=== PATIENT | male | born 1975 | race Caucasian/White ===

== ENCOUNTER 2022-10-31 20:53 | Emergency (ER) | payer OTHER ==
[~2022-10-31] VITALS: Ht 177.8 cm; Wt 140.9 kg
[2022-10-31 21:39] LABS: Basophils # (auto) 0 10 ^3/uL (0-0.2); Basophils % (auto) 0.2 % (0.0-2.0); Eosinophils # (auto) 0 10 ^3/uL (0-0.8); Eosinophils % (auto) 0.1 % (0.0-7.0); Hematocrit 43.4 % (41.0-53.0); Hemoglobin 14.8 g/dL (13.5-17.5); Lymphocytes # (auto) 1.4 10 ^3/uL (0.4-5.4); Lymphocytes % (auto) 10.4 % (10.0-50.0); Mean Corpuscular Hgb Conc. 34.1 g/dL (32.0-36.0); Monocytes # (auto) 0.8 10 ^3/uL (0-1.3); Monocytes % (auto) 5.6 % (0.0-12.0); Neutrophils # (auto) 11.6 10 ^3/uL (1.6-8.6); Neutrophils % (auto) 83.7 % (37.0-80.0); Nucleated Red Blood Cells % 0.2 %; Red Cell Distribution Width 14.2 % (11.8-14.3); White Blood Cell 13.8 10^3/uL (4.4-10.8)
[2022-10-31 22:08] LABS: BUN/Creatinine Ratio 19.8 (10.0-20.0); Calcium 8.7 mg/dL (8.5-10.1); Magnesium 2.3 mg/dL (1.6-2.6); Potassium 3.6 mmol/L (3.5-5.1)
[2022-10-31 22:11] LABS: Bilirubin, Total 0.4 mg/dL (0.2-1.0); Total Protein 7.4 g/dL (6.4-8.2)
[2022-10-31] MEDS ORDERED: METOCLOPRAMIDE HCL 5MG/ml INJ 2ml VIAL IV ONE (22:15)
[2022-10-31] MEDS ORDERED: LACTATED RINGER'S 1,000 ML IV ONE (22:15)
[2022-10-31] MEDS ORDERED: LORazepam 2MG/ML-1ML VIAL IV ONE (22:15)
[2022-10-31] MEDS ORDERED: IOHEXOL 350 MG/ML 100ML IJ ONE (22:15)
[2022-10-31] MEDS ORDERED: diphenhdrAMINE HCL 50 MG/1 ML VL IV ONE (22:15)
[2022-10-31] MEDS ORDERED: hydrALAZINE HCL 20 MG/ML VL IV ONE (23:30)
== END 2022-11-01 05:15 ==
LOC: ER 20:53 → EDBD 20:53 → EEVIPCON 20:53 → ER 11-01 05:15
DX: R42 Dizziness and giddiness (principal); D72.829 Elevated white blood cell count, unspecified; R11.2 Nausea with vomiting, unspecified; K42.9 Umbilical hernia without obstruction or gangrene; R73.9 Hyperglycemia, unspecified; E78.5 Hyperlipidemia, unspecified; I10 Essential (primary) hypertension
CPT/HCPCS: 36415; 70450; 71045; 71260; 74177; 80053; 83690; 83735; 83880; 84484; 85025; 93005; 96361; 96374; 96375; 99285; J0360; J1200; J2060; J2765; J7030; Q9967